=== PATIENT | female | born 1950 | race Caucasian/White ===

== ENCOUNTER 2018-03-31 13:23 | Observation (INO) | payer MEDICARE, OTHER ==
[~2018-03-31] VITALS: Ht 142.2 cm; Wt 76.0 kg
[2018-03-31] MEDS ORDERED: SODIUM CHLORIDE 0.9% 1L BAG IV* STA (14:53)
[2018-03-31] MEDS ORDERED: ONDANSETRON 4 MG INJ IV STA (15:07)
[2018-03-31] MEDS ORDERED: CEFTRIAXONE 1 GM/50 ML (PMX) 50 ML IVPB ONE (15:30)
[2018-03-31] MEDS ORDERED: OMEG-135 PO (15:43)
[2018-03-31] MEDS ORDERED: HYDR-843 PO (15:43)
[2018-03-31] MEDS ORDERED: AMLO5TAB4 PO (15:44)
[2018-03-31] MEDS ORDERED: GEMF600T8 PO (15:44)
[2018-03-31] MEDS ORDERED: HYDR25TA6 PO (15:44)
[2018-03-31] MEDS ORDERED: ONDANSETRON 4 MG INJ IV PRN ×2 (16:00→17:30)
[2018-03-31] MEDS ORDERED: ACETAMINOPHEN 325 MG TAB PO PRN (16:00)
--- NOTE | 2018-03-31 16:41 | ERD ---
ER Documentation Chief Complaint Chief Complaint SENT FOR DEHYDRATION AND LAB WORK BY PMD HPI Patient is a 67-year-old female with hypertension who presents for dehydration. The patient was seen by Dr. Silverman her primary doctor in the office and was sent to the ER for admission. She has had 6-7 days of feeling "sick". She was not feeling well. She has not been drinking or eating. She denies fevers but does have a cough. She has no urinary symptoms. She had one episode of nausea and vomiting 3 days ago. Upon review of old medical records this is the patient's first visit to the emergency department. ROS All systems reviewed and are negative except as per history of present illness. Medications Home Meds Reported Medications Gemfibrozil* (Gemfibrozil*) 600 Mg Tablet, 600 MG PO BID, TAB 03/31/18 Amlodipine Besylate* (Norvasc*) 5 Mg Tablet, 5 MG PO DAILY, TAB 03/31/18 Hydrochlorothiazide* (Hydrochlorothiazide*) 25 Mg Tab, 25 MG PO DAILY, #30 TAB 03/31/18 [place]-3 Fatty Acids/Fish Oil (Fish Oil 1,000 mg Capsule) 1 Each Capsule, 1 EACH PO DAILY, CAP 03/31/18 Hydroxyzine Hcl* (Hydroxyzine Hcl*) 25 Mg Tablet, 25 MG PO QHS PRN for ITCHING, #30 TAB 03/31/18 Allergies Allergies: Coded Allergies: No Known Allergy (Unverified , 03/31/18) PMhx/Soc History of Surgery: Yes (Appendectomy) Anesthesia Reaction: No Hx Neurological Disorder: No Hx Respiratory Disorders: No Hx Cardiac Disorders: No Hx Psychiatric Problems: No Hx Miscellaneous Medical Probl: Yes (HTN, chelosterol) Hx Alcohol Use: Yes (socially) Hx Substance Use: No Hx Tobacco Use: No Smoking Status: Never smoker FmHx Family History: No diabetes Physical Exam Vitals Vital Signs Date Temp Pulse Resp B/P (MAP) Pulse Ox O2 O2 Flow FiO2 Time Delivery Rate 03/31/18 79 16 117/83 96 Room Air 16:29 (94) 03/31/18 98.7 91 18 181/92 99 13:29 (121) Physical Exam Const: No acute distress Head: Atraumatic Eyes: Normal Conjunctiva ENT: Dry mucous membranes Neck: Full range of motion. No meningismus. Resp: Clear to auscultation bilaterally Cardio: Regular rate and rhythm, no murmurs Abd: Soft, non tender, non distended. Normal bowel sounds Skin: No petechiae or rashes Back: No midline or flank tenderness Ext: No cyanosis, or edema Neur: Awake and alert Psych: Normal Mood and Affect Result Diagram: 03/31/18 1515 03/31/18 1515 Results 24 hrs Laboratory Tests Test 03/31/18 15:15 03/31/18 15:17 03/31/18 15:50 White Blood Count 5.9 10^3/ul Red Blood Count 5.02 10^6/ul Hemoglobin 13.8 g/dl Hematocrit 41.4 % Mean Corpuscular Volume 82.5 fl Mean Corpuscular Hemoglobin 27.5 pg Mean Corpuscular 33.3 g/dl Hemoglobin Concent Red Cell Distribution Width 13.0 % Platelet Count 237 10^3/UL Mean Platelet Volume 10.9 fl Immature Granulocytes % 0.300 % Neutrophils % 60.1 % Lymphocytes % 32.3 % Monocytes % 6.5 % Eosinophils % 0.5 % Basophils % 0.3 % Nucleated Red Blood Cells % 0.0 /100WBC Immature Granulocytes # 0.020 10^3/ul Neutrophils # 3.5 10^3/ul Lymphocytes # 1.9 10^3/ul Monocytes # 0.4 10^3/ul Eosinophils # 0.0 10^3/ul Basophils # 0.0 10^3/ul Nucleated Red Blood Cells # 0.0 10^3/ul Prothrombin Time 11.7 Sec Prothrombin Time Ratio 0.9 INR International 0.85 Normalized Ratio Activated Partial Thromboplast 22.9 Sec Time Sodium Level 141 mmol/L Potassium Level 3.3 mmol/L Chloride Level 100 mmol/L Carbon Dioxide Level 27 mmol/L Anion Gap 14 Blood Urea Nitrogen 27 mg/dl Creatinine 0.67 mg/dl Est Glomerular Filtrat > 60 mL/min Rate mL/min Glucose Level 116 mg/dl Calcium Level 9.8 mg/dl Total Bilirubin 0.4 mg/dl Direct Bilirubin 0.00 mg/dl Indirect Bilirubin 0.4 mg/dl Aspartate Amino 30 IU/L Transf (AST/SGOT) Alanine 32 IU/L Aminotransferase (ALT/SGPT) Alkaline Phosphatase 73 IU/L Troponin I < 0.012 ng/ml Total Protein 8.6 g/dl Albumin 4.6 g/dl Globulin 4.00 g/dl Albumin/Globulin Ratio 1.15 POC Venous Lactate 1.4 mmol/L Urine Color NU Urine Clarity SLIGHTLY CLOUDY Urine pH 6.0 Urine Specific [place] 1.028 Urine Ketones 1+ mg/dL Urine Nitrite NEGATIVE mg/dL Urine Bilirubin NEGATIVE mg/dL Urine Urobilinogen 2+ mg/dL Urine Leukocyte Esterase 3+ Candace/ul Urine Microscopic RBC 14 /HPF Urine Microscopic WBC 28 /HPF Urine Squamous Epithelial Cells FEW /HPF Urine Mucus MANY /HPF Urine Hemoglobin 1+ mg/dL Urine Glucose NEGATIVE mg/dL Urine Total Protein 1+ mg/dl Current Medications Medications Dose Sig/Roya Start Time Status Last (Trade) Ordered Route PRN Stop Time Admin Dose Reason Admin Sodium 2,430 ml BOLUS OVER 2 03/31/18 DC 03/31/18 Chloride HOURS STAT 14:53 14:53 (NS) IV* 03/31/18 14:54 Ceftriaxone 50 ml @ ONCE ONCE 03/31/18 DC 03/31/18 Sodium 100 mls/hr IVPB 15:30 15:54 03/31/18 15:59 Ondansetron 4 mg ONCE STAT 03/31/18 DC 03/31/18 HCl (Zofran IV 15:07 15:54 Inj) 03/31/18 15:08 Ondansetron 4 mg BRIDGE ORDER 03/31/18 HCl (Zofran PRN IV 16:00 Inj) NAUSEA/VOMITI 04/01/18 15:59 NG 650 mg ER BRIDGE 03/31/18 Acetaminophen PRN PO 16:00 (Tylenol .MILD PAIN 04/01/18 15:59 Tab) 1-3 OR TEMP Procedures/MDM EKG read by me: Rate/Rhythm: Regular rate and rhythm at a normal rate Intervals: Normal Impression: No evidence of ischemia or arrhythmia Chest x-ray read by radiology. Patient is a 67-year-old female who presents with dehydration. She was also found to have acute cystitis. Her vital signs are normal and I doubt sepsis at this time. The patient has a normal lactic acid. She was given ceftriaxone empirically. Blood cultures and urine culture pending. The patient was given 30 ml/kg of normal saline for fluid resuscitation. She will be admitted to the care of Dr. Silverman who sent her to the emergency department. Departure Diagnosis: Primary Impression: Dehydration Additional Impression: Cystitis Condition: Fair FORTUNATO SHEIKH MD Mar 31, 2018 16:41
[2018-03-31 17:00] VITALS: BP 128/72; PULSE 80; RESP 16
[2018-03-31] MEDS ORDERED: DIPHENHYDRAMINE 25 MG CAP PO PRN (17:30)
[2018-03-31] MEDS ORDERED: ACETAMINOPHEN 500 MG TAB PO PRN (17:30)
[2018-03-31 18:13] VITALS: Ht 142.2 cm; Wt 76.0 kg
[2018-03-31] MEDS: AZITHROMYCIN 500MG/NS (PMX) 250 ML IVPB SCH (18:31)
[2018-03-31] MEDS: D5-NS + KCL 20 MEQ 1,000 ML IV SCH (18:32)
[2018-03-31 20:00] VITALS: BP 114/57; PULSE 92; RESP 17
[2018-04-01 02:23] VITALS: BP 144/75; PULSE 76; RESP 18
[2018-04-01] MEDS ORDERED: PANTOPRAZOLE 40 MG INJ ONE (03:36)
[2018-04-01] MEDS: PANTOPRAZOLE 40 MG INJ IV SCH (05:49)
[2018-04-01 08:00] VITALS: BP 145/77; PULSE 76; RESP 20
--- NOTE | 2018-04-01 08:53 | HP ---
Date/Time of Note Date/Time of Note DATE: 04/01/18 TIME: 08:44 Assessment/Plan VTE Prophylaxis Risk score (from Ns)>0 risk: 4 SCD applied (from [facility]): No SCD contraindicated: low risk/ambulating Pharmacological prophylaxis: LMWH Lines/Catheters IV Catheter Type (from Nrs): Peripheral IV Central line still needed: No Urinary Cath still in place: No Assessment/Plan Assessment/Plan 1. Dehydration 2. Hypokalemia 3. UTI 4. Epigastric pain 5. Nausea vomiting 6. Weight loss 7. Obtundation 8. Anemia 9. For the drop of H&H most probably due to hydration. Result Diagram: 04/01/18 0456 04/01/18 0456 Results 24hrs Laboratory Tests Test 03/31/18 15:14 03/31/18 15:15 03/31/18 15:17 03/31/18 15:50 Erythrocyte 55 H Sedimentation Rate Magnesium Level 2.4 C-Reactive 1.29 H Protein High Sensitivity White Blood Count 5.9 Red Blood Count 5.02 Hemoglobin 13.8 Hematocrit 41.4 Mean Corpuscular 82.5 Volume Mean Corpuscular 27.5 L Hemoglobin Mean Corpuscular 33.3 Hemoglobin Concen t Red Cell 13.0 Distribution Width Platelet Count 237 Mean Platelet 10.9 H Volume Immature 0.300 Granulocytes % Neutrophils % 60.1 Lymphocytes % 32.3 Monocytes % 6.5 Eosinophils % 0.5 Basophils % 0.3 Nucleated Red 0.0 Blood Cells % Immature 0.020 Granulocytes # Neutrophils # 3.5 Lymphocytes # 1.9 Monocytes # 0.4 Eosinophils # 0.0 Basophils # 0.0 Nucleated Red 0.0 Blood Cells # Prothrombin Time 11.7 L Prothrombin Time 0.9 Ratio INR International 0.85 Normalized Ratio Activated 22.9 L Partial Thrombopl ast Time Sodium Level 141 Potassium Level 3.3 L Chloride Level 100 Carbon Dioxide 27 Level Anion Gap 14 H Blood Urea 27 H Nitrogen Creatinine 0.67 Est Glomerular > 60 Filtrat Rate mL/min Glucose Level 116 Calcium Level 9.8 Total Bilirubin 0.4 Direct Bilirubin 0.00 Indirect 0.4 Bilirubin Aspartate Amino 30 Transf (AST/SGOT) Alanine 32 Aminotransferase (ALT/SGPT) Alkaline 73 Phosphatase Troponin I < 0.012 Total Protein 8.6 H Albumin 4.6 Globulin 4.00 H Albumin/Globulin 1.15 Ratio POC Venous 1.4 Lactate Urine Color NU Urine Clarity SLIGHTLY CLOUDY A Urine pH 6.0 Urine Specific 1.028 [place] Urine Ketones 1+ H Urine Nitrite NEGATIVE Urine Bilirubin NEGATIVE Urine 2+ H Urobilinogen Urine Leukocyte 3+ H Esterase Urine Microscopic 14 H RBC Urine Microscopic 28 H WBC Urine Squamous FEW Epithelial Cells Urine Mucus MANY A Urine Hemoglobin 1+ H Urine Glucose NEGATIVE Urine Total 1+ H Protein Test 03/31/18 19:06 04/01/18 04:56 Lactic Acid Level 1.0 White Blood Count 4.3 #L Red Blood Count 4.26 Hemoglobin 11.8 L Hematocrit 35.4 L Mean Corpuscular 83.1 Volume Mean Corpuscular 27.7 L Hemoglobin Mean Corpuscular 33.3 Hemoglobin Concen t Red Cell 12.9 Distribution Width Platelet Count 226 Mean Platelet 10.6 H Volume Immature 0.000 L Granulocytes % Neutrophils % 43.8 Lymphocytes % 47.1 Monocytes % 7.0 Eosinophils % 1.9 Basophils % 0.2 Nucleated Red 0.0 Blood Cells % Immature 0.000 Granulocytes # Neutrophils # 1.9 Lymphocytes # 2.0 Monocytes # 0.3 Eosinophils # 0.1 Basophils # 0.0 Nucleated Red 0.0 Blood Cells # Sodium Level 140 Potassium Level 3.2 L Chloride Level 105 Carbon Dioxide 27 Level Anion Gap 8 Blood Urea 19 Nitrogen Creatinine 0.54 Est Glomerular > 60 Filtrat Rate mL/min Glucose Level 114 Calcium Level 8.9 HPI/ROS Admit Date/Time Admit Date/Time Mar 31, 2018 at 16:50 Hx of Present Illness Nausea anorexia, nervousness dizziness, inability to get up and walk without help times almost 1 week which is getting worse. Patient came to the office brought by son or grandson and was found to be hypotensive and dehydrated pale answering questions with delay and having tachycardia patient was unable to take her medications unable to eat due to her nausea and vomiting. I realized that it would be difficult to manage the patient as an outpatient call to the emergency room of [facility] and subsequently she was admitted. Initial evaluation showed that the patient was mildly dehydrated and was hypokalemic with the signs of a UTI although clinically she did not have the symptoms. Despite of receiving yesterday potassium supplementation her potass ium from 3.3 came down to 3.2. She continues to be nauseous. ROS Constitutional: improved, chills, fatigue, nausea, poor po, weight change; No no complaints, No diaphoresis, No disoriented, No febrile, No other Eyes: No no complaints, No pain, No discharge, No redness, No visual change, No other ENT: congestion; No no complaints, No bleeding, No pain, No discharge, No dysphagia, No sore throat, No other Respiratory: cough, pleuritic pain, shortness of breath; No no complaints, No pain, No sputum, No wheezing, No other Cardiovascular: chest pain, lightheadedness, orthopenea, palpitations, paroxysmal nocturnal dyspnea; No no complaints, No edema, No other Gastrointestinal: constipation, decreased appetite, flatus, nausea, passing stool, vomiting; No no complaints, No pain, No blood, No diarrhea, No other Genitourinary: dysuria, discharge; No no complaints, No bleeding, No flank pain, No hematuria, No other Musculoskeletal: back pain, bone/joint pain, neck pain, restricted range of motion; No no complaints, No swelling, No other Skin: No no complaints, No bruising, No erythema, No laceration, No pruritis, No rash, No skin lesions, No other Neurologic: confusion, dizziness; No no complaints, No focal-weakness, No headache, No syncope, No seizure, No other Endocrine: dry skin; No no complaints, No polyuria, No polydypsia, No temp intolerance, No weight change, No other Lymphatic: No no complaints, No adenopathy, No tender nodes, No lymphadema, No other Psychological: anxiety; No no complaints, No nl mood/affect, No confusion, No depression, No suicidal, No other Immunologic: No no complaints, No immunodeficiency, No pruritis, No rhinitis, No urticaria, No other PMH/Family/Social Past Medical History Medical History: GERD, high cholesterol, hypertension, urinary tract infection Medications Current Medications Potassium Chloride/Dextrose/ Sod Cl 1,000 ml @ 60 mls/hr [id number] IV Last administered on 03/31/18at 18:32; Admin Dose 60 MLS/HR; Start 03/31/18 at 18:00 Pantoprazole (Protonix Iv) 40 mg DAILY@06 IV Last administered on 04/01/18at 05:49; Admin Dose 40 MG; Start 04/01/18 at 06:00 Azithromycin 250 ml @ 250 mls/hr Q24H IVPB Last administered on 03/31/18at 18:31; Admin Dose 250 MLS/HR; Start 03/31/18 at 18:00; Stop 04/02/18 at 18:59 Acetaminophen (Tylenol Tab) 500 mg Q6H PRN PO MILD PAIN(1-3)OR ELEVATED TEMP; Start 03/31/18 at 17:30 Ondansetron HCl (Zofran Inj) 4 mg Q6H PRN IV NAUSEA AND/OR VOMITING; Start 03/31/18 at 17:30 Diphenhydramine HCl (Benadryl) 25 mg Q6H PRN PO ITCHING; Start 03/31/18 at 17:30 Coded Allergies: No Known Allergy (Unverified , 03/31/18) Past Surgical History Past Surgical Hx: appendectomy Family History Significant Family History: no pertinent family hx Social History Alcohol Use: none Smoking Status: Never smoker Drug Use: none Exam/Review of Systems Vital Signs Vitals Vital Signs Date Temp Pulse Resp B/P (MAP) Pulse Ox O2 O2 Flow FiO2 Time Delivery Rate 04/01/18 98.6 76 20 145/77 98 08:00 (99) 03/31/18 Room Air 17:00 Intake and Output 03/31/18 03/31/18 04/01/18 1515:00 23:00 07:00 IntakeIntake Total 550 ml 1000 ml BalanceBalance 550 ml 1000 ml Exam Constitutional: alert, oriented, well developed, distress, other (Yesterday she was more obtunded slow in response needed repetition of questions today she feels more alert oriented cooperative smiling and even disclosing that because she was unable to hear her dentures she just all of the pieces of meat without chewing after which she started to feel epigastric pain this can be 1 of the causes of her epigastric pain and discomfort abdominal ultrasound results are pending.) Psych: anxiety; No no complaints, No nl mood/affect, No confusion, No depression, No suicidal, No other Head: normocephalic, atraumatic; No lacerations, No hematomas, No other Eyes: nl conjunctiva, nl lids, PERRL; No EOMI, No nl sclera, No icteric, No fundi, disc, No other ENMT: No nl external ears & nose, No nl lips & teeth, No nl nasal mucosa & septum, No mucosa pink and moist, No intubated, No tympanic membranes, No other Neck: nuchal rigidity; No supple, No non-tender, No jvd, No bruits, No masses, No thyromegaly, No other Respiratory: clear to auscultation, diminished breath sounds, labored breathing; No normal air movement, No congested cough, No crackles/rales, No intercostal retraction, No respirations, No tactile fremitus, No wheezing, No other Cardiovascular: nl pulses, irregular rhythm, systolic murmur; No regular rate and rhythm, No bruits, No diastolic murmur, No edema, No gallop, No jugular venous distention (JVD), No murmurs/extra sounds, No rub, No S3, No S4, No other Gastrointestinal: soft, bowel sounds, surgical scars (Status post right appendectomy scar), other (Painful epigastric region with no rebound mildly pain ful right upper quadrant Solano sign is negative.); No nl liver, spleen, No non-tender, No ascites, No distended, No firm, No hepatomegaly, No mass, No rebound or guarding, No splenomegaly, No tender Genitourinary - Female: nl adnexae, nl external genitalia Musculoskeletal: joint tenderness, muscle tone, muscle weakness; No nl extremities to inspection, No nl gait and stance, No range of motion, No spine non-tender, No swelling, No other Extremities: normal pulses; No calf tenderness, No cyanosis, No clubbing, No edema, No pitting pedal edema, No palpable cord, No tenderness, No other Neurological: [employer] II-XII intact, confused, lethargic (He was lethargic yesterday today she is feels more active and be more cooperative.), numbness; No nl mental status, No nl speech, No nl strength, No DTR's symmetric, No focal weakness, No reflexes, No unresponsive, No other Skin: nl turgor (Turgor of the skin yesterday was weak today improved); No rash or lesions, No diaphoresis, No ecchymosis, No laceration, No puncture, No other Lymph: nl lymph nodes; No enlarged, No nontender, No other PILOSSMINGO HALL MD Apr 01, 2018 08:53
[2018-04-01] MEDS: D5-NS + KCL 20 MEQ 1,000 ML IV SCH ×2 (10:32→12:01)
[2018-04-01 14:00] VITALS: BP 114/68; PULSE 80; RESP 18
[2018-04-01] MEDS: AZITHROMYCIN 500MG/NS (PMX) 250 ML IVPB SCH (17:20)
[2018-04-01] MEDS ORDERED: LEVOFLOXACIN 500MG/D5W (PMX) 100 ML IVPB SCH (19:30)
[2018-04-01 20:00] VITALS: BP 125/66; PULSE 85; RESP 18
[2018-04-02 01:58] VITALS: BP 131/75; PULSE 81; RESP 16
[2018-04-02] MEDS: PANTOPRAZOLE 40 MG INJ IV SCH (05:21)
[2018-04-02] MEDS: D5-NS + KCL 20 MEQ 1,000 ML IV SCH (05:23)
[2018-04-02 08:13] VITALS: BP 157/80; PULSE 71; RESP 17
--- NOTE | 2018-04-02 16:22 | PDOCDIS ---
Discharge Instructions DIAGNOSIS Discharge Diagnosis 1. Dehydration 2. Hypokalemia 3. UTI 4. Epigastric pain 5. Nausea vomiting 6. Weight loss 7. Obtundation 8. Anemia 9. For the drop of H&H most probably due to hydration. CONDITION [id number] Patient Condition: [id number] Guarded HOME CARE INSTRUCTIONS: [id number] Diet Instructions: [id number] Reduced Sodium ACTIVITY: [id number] Activity Restrictions: [id number] No Restrictions Slowly Increase Activity FOLLOW UP/APPOINTMENTS Follow-up Plan In a week to Dr. Gee. SCHOOL/WORK RELEASE May return to School/Work with: With Restrictions (no.) MINGO GEE MD Apr 02, 2018 16:22
--- NOTE | 2018-04-02 16:24 | DS ---
Date/Time of Note Date/Time of Note DATE: 04/02/18 TIME: 16:23 Discharge Summary Admission/Discharge Info Admit Date/Time Mar 31, 2018 at 16:50 Discharge Date/Time Apr 02, 2018 at 12:40 Discharge Diagnosis 1. Dehydration 2. Hypokalemia 3. UTI 4. Epigastric pain 5. Nausea vomiting 6. Weight loss 7. Obtundation 8. Anemia 9. For the drop of H&H most probably due to hydration. Hx of Present Illness Nausea anorexia, nervousness dizziness, inability to get up and walk without help times almost 1 week which is getting worse. Patient came to the office brought by son or grandson and was found to be hypotensive and dehydrated pale answering questions with delay and having tachycardia patient was unable to take her medications unable to eat due to her nausea and vomiting. I realized that it would be difficult to manage the patient as an outpatient call to the [place] [facility] room [facility] and subsequently she was admitted. Initial evaluation showed that the patient was mildly dehydrated and was hypokalemic with the signs of a UTI although clinically she did not have the symptoms. Despite of receiving yesterday potassium supplementation her potassium from 3.3 came down to 3.2. She continues to be nauseous. Hospital Course After receiving IV hydration potassium supplementation along with antibiotics condition improved significantly she is able to able to eat more her gait become more stable with continue treatment as an outpatient with follow-up visit in 5-7 days. Home Meds Reported Medications Gemfibrozil* (Gemfibrozil*) 600 Mg Tablet, 600 MG PO BID, TAB 03/31/18 Amlodipine Besylate* (Norvasc*) 5 Mg Tablet, 5 MG PO DAILY, TAB 03/31/18 Hydrochlorothiazide* (Hydrochlorothiazide*) 25 Mg Tab, 25 MG PO DAILY, #30 TAB 03/31/18 [place]-3 Fatty Acids/Fish Oil (Fish Oil 1,000 mg Capsule) 1 Each Capsule, 1 EACH PO DAILY, CAP 03/31/18 Hydroxyzine Hcl* (Hydroxyzine Hcl*) 25 Mg Tablet, 25 MG PO QHS PRN for ITCHING, #30 TAB 03/31/18 Follow-up Plan In a week to Dr. Gee. Primary Care Provider Dari Gee MD Time spent on discharge: > 30 minutes Pending Labs Laboratory Tests Test 04/02/18 05:06 White Blood Count 5.1 10^3/ul (4.8-10.8) Red Blood Count 4.46 10^6/ul (4.20-5.40) Hemoglobin 12.3 g/dl (12.0-16.0) Hematocrit 37.5 % (37.0-47.0) Mean Corpuscular Volume 84.1 fl (82.0-101.0) Mean Corpuscular Hemoglobin 27.6 pg (29.0-33.0) Mean Corpuscular Hemoglobin Concent 32.8 g/dl (32.0-37.0) Red Cell Distribution Width 13.0 % (11.5-14.5) Platelet Count 262 10^3/UL (140-415) Mean Platelet Volume 10.3 fl (7.4-10.4) Immature Granulocytes % 0.400 % (0.001-0.429) Neutrophils % 49.0 % (39.0-77.0) Lymphocytes % 39.5 % (15.0-51.0) Monocytes % 8.1 % (0.0-11.0) Eosinophils % 2.6 % (0.0-7.0) Basophils % 0.4 % (0.0-2.0) Nucleated Red Blood Cells % 0.0 /100WBC (0.0-0.0) Immature Granulocytes # 0.020 10^3/ul (0.0-0.031) Neutrophils # 2.5 10^3/ul (1.6-7.5) Lymphocytes # 2.0 10^3/ul (0.8-2.9) Monocytes # 0.4 10^3/ul (0.3-0.9) Eosinophils # 0.1 10^3/ul (0.0-0.5) Basophils # 0.0 10^3/ul (0.0-0.1) Nucleated Red Blood Cells # 0.0 10^3/ul (0.0-0.0) Sodium Level 143 mmol/L (135-144) Potassium Level 3.7 mmol/L (3.5-5.1) Chloride Level 106 mmol/L (97-110) Carbon Dioxide Level 32 mmol/L (21-31) Anion Gap 5 (5-13) Blood Urea Nitrogen 13 mg/dl (7-20) Creatinine 0.58 mg/dl (0.44-1.00) Est Glomerular Filtrat Rate mL/min > 60 mL/min (>60) Glucose Level 98 mg/dl (70-220) Calcium Level 9.3 mg/dl (8.4-10.2) Total Bilirubin 0.3 mg/dl (0.2-1.3) Direct Bilirubin 0.00 mg/dl (0.00-0.20) Indirect Bilirubin 0.3 mg/dl (0-1.1) Aspartate Amino Transf (AST/SGOT) 22 IU/L (15-46) Alanine Aminotransferase (ALT/SGPT) 26 IU/L (13-69) Alkaline Phosphatase 54 IU/L (42-121) Total Protein 6.7 g/dl (6.1-8.1) Albumin 3.6 g/dl (3.3-4.9) Globulin 3.10 g/dl (1.3-3.2) Albumin/Globulin Ratio 1.16 Microbiology Date/Time Source Procedure Growth Status 04/01/18 18:12 Feces Stool Culture - Preliminary Coliform Resulted DARI GEE MD Apr 02, 2018 16:24
== END 2018-04-02 12:40 | disposition home or self-care (01) ==
LOC: E/R 13:23 → PP2 16:50
PROVIDERS: ADMIT Family Medicine; ATTEND Family Medicine
DX: E86.0 Dehydration (principal); I10 Essential (primary) hypertension; E87.6 Hypokalemia; N39.0 Urinary tract infection, site not specified; R10.13 Epigastric pain; R11.2 Nausea with vomiting, unspecified; D64.9 Anemia, unspecified
CPT/HCPCS: 36415; 71045; 76700; 80048; 80053; 81001; 83605; 83735; 84155; 84165; 84484; 85025; 85610; 85651; 85730; 86140; 87040; 87045; 87086; 93005; 99285; C9113; G0378; J0456; J0696; J1956; J2405; J3480; J7030